=== PATIENT | male | born 1960 | race Caucasian/White ===

== ENCOUNTER 2017-03-22 10:41 | Day surgery (SDC) | payer OTHER ==
[~2017-03-22] VITALS: Ht 182.9 cm; Wt 175.5 kg
[~2017-03-22 10:41] MED LIST: CIPRO 500MG TA500 MG PO; DOXYCYCLINE 10100 MG PO; FLONASE NASAL S16 GM NS; NAPROSYN 2250 MG/TAB PO; NORCO 325 MG-51 TAB PO; PYRIDIUM 100MG100 MG PO; ZOLOFT 100MG100 MG PO; ZYRTEC 10MG10 MG PO
[2017-03-22] MEDS ORDERED: ALEVE 220MG220 MG PO (11:31)
[2017-03-22] MEDS ORDERED: MULTI VITAMINS1 TAB PO (11:32)
[2017-03-22] MEDS ORDERED: FLOMAX 0.40.4 MG/CAP PO (11:33)
[2017-03-22] MEDS ORDERED: ZYRTEC 10MG10 MG PO (11:33)
[2017-03-22] MEDS ORDERED: PERCOCET 325 MG1 TA2 PO (11:34)
[2017-03-22 11:35] VITALS: BP 154/54; PULSE 81; TEMP 98.8
[2017-03-22 14:35] VITALS: BP 152/78; PULSE 72; TEMP 97.8
[2017-03-22 14:45] VITALS: BP 148/76; PULSE 69
[2017-03-22 15:03] VITALS: BP 130/83; PULSE 72
[2017-03-22 15:19] VITALS: BP 150/86; PULSE 74
== END 2017-03-22 15:35 | disposition home or self-care (01) ==
LOC: SDCO 10:41
DX: N20.2 Calculus of kidney with calculus of ureter (principal); F32.9 Major depressive disorder, single episode, unspecified; G47.33 Obstructive sleep apnea (adult) (pediatric); Z96.641 Presence of right artificial hip joint; Z87.442 Personal history of urinary calculi; Z87.891 Personal history of nicotine dependence; Z83.3 Family history of diabetes mellitus; Z82.49 Family history of ischemic heart disease and other diseases of the circulatory system; Z80.51 Family history of malignant neoplasm of kidney
CPT/HCPCS: C1769; C1894; C2617; J1100; J2405; J2704; J3010; J7120; Q9967